=== PATIENT | male | born 1975 | race African-American/Black ===

== ENCOUNTER 2017-05-07 08:59 | Emergency (ER) | payer OTHER ==
[2017-05-07] MEDS ORDERED: 0.9 % SODIUM CHLORIDE 10 ML DISP.SYRIN. IV ×2 (09:15)
[2017-05-07 09:18] LABS: ADD MAN DIFF? NO
[2017-05-07 09:27] LABS: HEMATOCRIT 43.6 % (39.0-53.0); HEMOGLOBIN 14.4 g/dL (13.0-17.5); MEAN CORPUSCULAR HEMOGLOBIN 29 pg (25-35); MEAN CORPUSCULAR HGB CONC 33 g/dL (31-37); MEAN CORPUSCULAR VOLUME 88 fL (79-100); PLATELET COUNT 234 x10^3/uL (140-400); RED BLOOD COUNT 4.98 x10^6/uL (4.30-5.70); RED CELL DISTRIBUTION WIDTH 12.8 % (11.5-14.5); WHITE BLOOD COUNT 4.1 x10^3/uL (4.0-11.0)
[2017-05-07 09:28] LABS: BASO % 1 % (0-3); EOS % 7 % (0-3); LYMPH % 48 % (24-48); MONO # 0.3 x10^3/uL (0.0-1.1); MONO % 8 % (0-9); NEUT # 1.5 x10^3uL (1.8-7.7); NEUT % 36 % (31-73)
[2017-05-07 09:29] LABS: BASO # 0.1 x10^3/uL (0.0-0.2); EOS # 0.3 x10^3/uL (0.0-0.7)
[2017-05-07] MEDS: HYDROmorphone 2 MG/ML VIAL IV/SQ ×2 (09:30)
[2017-05-07] MEDS: IV NORMAL SALINE 1000ML BAG 1,000 ML IV ×2 (09:33)
[2017-05-07 09:37] LABS: ANION GAP 7 (6-14); BLOOD UREA NITROGEN 17 mg/dL (8-26); CALCIUM 9.1 mg/dL (8.5-10.1); CARBON DIOXIDE 31 mmol/L (21-32); CHLORIDE 103 mmol/L (98-107); GFR 82.3; GLUCOSE 74 mg/dL (70-99); POTASSIUM 3.8 mmol/L (3.5-5.1); SODIUM 141 mmol/L (136-145)
[2017-05-07 09:43] LABS: ALK PHOS 94 U/L (46-116); ALT (SGPT) 32 U/L (16-63); AST (SGOT) 18 U/L (15-37); DIRECT BILIRUBIN 0.1 mg/dL (0.0-0.2); LIPASE 73 U/L (73-393); MAGNESIUM 1.8 mg/dL (1.8-2.4); TOTAL BILIRUBIN 0.4 mg/dL (0.2-1.0); TOTAL PROTEIN 7.3 g/dL (6.4-8.2)
[2017-05-07 09:46] LABS: TROPONINI < 0.017 ng/mL (0.000-0.055)
[2017-05-07 09:50] LABS: THYROID STIM HORMONE (TSH) 0.761 uIU/mL (0.358-3.74)
[2017-05-07 09:51] LABS: NT-PRO BNP 11 pg/mL (0-124)
[2017-05-07 09:51] LABS: CKMB INDEX 0.5 % (0-4); CKMB MASS 1.2 ng/mL (0.0-3.6); CREATINE KINASE 236 U/L (39-308)
[2017-05-07 09:59] LABS: D-DIMER < 0.27 ug/mlFEU (0.00-0.50)
[2017-05-07 10:31] LABS: INFLUENZA A PATIENT NEGATIVE (NEGATIVE); INFLUENZA B PATIENT NEGATIVE (NEGATIVE); OBC FLU VALID
[2017-05-07] MEDS ORDERED: ONDANSETRON ODT 4 MG TAB.RAPDIS. ×2 (10:47)
[2017-05-07] MEDS: ONDANSETRON ODT 4 MG TAB.RAPDIS. PO ×2 (10:49)
== END 2017-05-07 10:58 | disposition home or self-care (01) ==
LOC: ER 08:59
DX: R07.89 Other chest pain (principal); Z91.013 Allergy to seafood
CPT/HCPCS: 36415; 71046; 80048; 80076; 82553; 83690; 83735; 83880; 84443; 84484; 85025; 85379; 87804; 87804-59; 93005; 96361; 96374; 99285-25; J1170; J7030; Q0162